=== PATIENT | male | born 1975 | race Caucasian/White ===

== ENCOUNTER 2017-06-30 17:59 | Emergency (ER) | payer MEDICAID ==
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
== END 2017-06-30 18:48 | disposition home or self-care (01) ==
LOC: ER 17:59
DX: S20.211A Contusion of right front wall of thorax, initial encounter (principal); Y09 Assault by unspecified means; F17.210 Nicotine dependence, cigarettes, uncomplicated
CPT/HCPCS: 71046; 93005; 93010; 99284

== ENCOUNTER 2017-07-24 21:03 | Emergency (ER) | payer MEDICAID ==
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
== END 2017-07-24 21:34 | disposition home or self-care (01) ==
LOC: ER 21:03
DX: Z48.02 Encounter for removal of sutures (principal)
CPT/HCPCS: 99281